=== PATIENT | female | born 1975 | race African-American/Black ===

== ENCOUNTER 2017-09-16 21:11 | Emergency (ER) | payer MEDICAID, OTHER ==
[2017-09-16] MEDS: KETOROLAC 30 MG INJ IM (23:50)
[2017-09-16] MEDS: CEFTRIAXONE 1 GM INJ IM (23:56)
== END 2017-09-17 00:18 | disposition home or self-care (01) ==
LOC: FTE 21:11
DX: L03.116 Cellulitis of left lower limb (principal); L02.612 Cutaneous abscess of left foot; F17.210 Nicotine dependence, cigarettes, uncomplicated
CPT/HCPCS: 96372; 99284-25